=== PATIENT | male | born 1985 | race Caucasian/White ===

== ENCOUNTER 2017-12-05 10:31 | Emergency (ER) | payer OTHER ==
[~2017-12-05] VITALS: Ht 188 cm; Wt 90.7 kg
[~2017-12-05 10:31] MED LIST: AMOCLA875 PO; Amoxicillin500 MG PO; CARV25 PO; CARV6.25 PO; CHLO25 PO; CLON.1 PO; CLON2 PO; CYCL10 PO; Cleocin HCl300 MG PO; Flonase 0.05% N16 GM; Hydrocodone-Ap1 EA23 PO; LISI20 PO; LORA2 PO; METO25ER PO; MIRT30 PO; Mobic15 MG PO; Norco 5-325 Ta1 EACH PO; PROM25 PO; Prednisone10 MG PO; Roxicodone5 MG PO; Ultram50 MG PO; Zestril40 MG; Zofran Odt4 MG SL
[2017-12-05] MEDS ORDERED: LATUDA40 MG PO (10:41)
[2017-12-05] MEDS ORDERED: OXYC10TA19 PO (10:41)
[2017-12-05] MEDS ORDERED: Catapres0.1 MG PO (11:19)
== END 2017-12-05 11:22 | disposition home or self-care (01) ==
LOC: ER 10:31
DX: Z76.0 Encounter for issue of repeat prescription (principal); I10 Essential (primary) hypertension; F32.9 Major depressive disorder, single episode, unspecified; Z88.5 Allergy status to narcotic agent; Z88.6 Allergy status to analgesic agent; Z79.899 Other long term (current) drug therapy; Z87.891 Personal history of nicotine dependence
CPT/HCPCS: 99281

== ENCOUNTER 2017-12-13 19:06 | Emergency (ER) | payer OTHER ==
[~2017-12-13] VITALS: Ht 188 cm; Wt 90.7 kg
[~2017-12-13 19:06] MED LIST changes: +Catapres0.1 MG PO; +LATUDA40 MG PO; +OXYC10TA19 PO
[2017-12-13] MEDS ORDERED: LAMICTAL5 M1 GT (19:25)
[2017-12-13] MEDS ORDERED: GABA300 PO (19:26)
[2017-12-13] MEDS ORDERED: MIRT30 PO (19:27)
[2017-12-13] MEDS ORDERED: Ativan1 MG SL (20:07)
== END 2017-12-13 20:57 | disposition home or self-care (01) ==
LOC: ER 19:06
DX: Z71.41 Alcohol abuse counseling and surveillance of alcoholic (principal); I10 Essential (primary) hypertension; F31.9 Bipolar disorder, unspecified; Z88.5 Allergy status to narcotic agent; Z88.6 Allergy status to analgesic agent; Z79.899 Other long term (current) drug therapy; Z87.891 Personal history of nicotine dependence
CPT/HCPCS: 99283

== ENCOUNTER 2017-12-17 09:12 | Emergency (ER) | payer OTHER ==
[~2017-12-17] VITALS: Ht 188 cm; Wt 90.7 kg
[~2017-12-17 09:12] MED LIST changes: +Ativan1 MG SL; +GABA300 PO; +LAMICTAL5 M1 GT
[2017-12-17] MEDS ORDERED: LORA2 PO (09:54)
[2017-12-18] MEDS ORDERED: LAMO25 PO (18:22)
== END 2017-12-17 10:21 | disposition home or self-care (01) ==
LOC: ER 09:12
DX: Z71.41 Alcohol abuse counseling and surveillance of alcoholic (principal); F10.239 Alcohol dependence with withdrawal, unspecified; Z88.5 Allergy status to narcotic agent; Z88.8 Allergy status to other drugs, medicaments and biological substances; Z79.899 Other long term (current) drug therapy; I10 Essential (primary) hypertension; F32.9 Major depressive disorder, single episode, unspecified; Z87.891 Personal history of nicotine dependence
CPT/HCPCS: 99283

== ENCOUNTER 2017-12-18 18:10 | Emergency (ER) | payer OTHER ==
[~2017-12-18] VITALS: Ht 188 cm; Wt 90.7 kg
[2017-12-18] MEDS ORDERED: LAMO25 PO (18:22)
[2017-12-18 18:48] LABS: BASOPHILS ABSOLUTE AUTO 0.03 K/mm3 (0.00-0.23); BASOPHILS PERCENT AUTO 0 % (0-2); EOSINOPHILS ABSOLUTE AUTO 0.22 K/mm3 (0.00-0.68); EOSINOPHILS PERCENT AUTO 3 % (0-6); Hematocrit 45.9 % (37.0-53.0); Hemoglobin 15.9 g/dL (13.5-17.5); IMMATURE GRAN ABSOLUTE AUTO 0.02 K/mm3 (0.00-0.10); IMMATURE GRAN PERCENT AUTO 0 % (0-1); LYMPHOCYTES ABSOLUTE AUTO 3.09 K/mm3 (0.84-5.20); LYMPHOCYTES PERCENT AUTO 46 % (21-46); MONOCYTES ABSOLUTE AUTO 0.55 K/mm3 (0.16-1.47); MONOCYTES PERCENT AUTO 8 % (4-13); Mean Corpuscular HGB 31.3 pg (26.0-34.0); Mean Corpuscular HGB Conc 34.6 g/dL (31.5-36.5); Mean Corpuscular Volume 90 fL (80-100); Mean Platelet Volume 8.9 fL (9.1-12.4); NEUTROPHILS ABSOLUTE AUTO 2.77 K/mm3 (1.96-9.15); NEUTROPHILS PERCENT AUTO 42 % (41-73); Platelet Count 295 K/mm3 (150-400); RDW Coefficient Variation 12.3 % (11.7-14.2); RDW Standard Deviation 40.4 fL (35.1-46.3); Red Blood Cell Count 5.08 M/mm3 (4.30-5.90); White Blood Cell Count 6.68 K/mm3 (4.00-11.30)
[2017-12-18 19:12] LABS: U Amphetamine Screen Not Detected; U Barbituate Screen Not Detected; U Benzodiazapine Screen DETECTED; U Cocaine Screen Not Detected; U Methadone Screen Not Detected; U Methamphetamine Screen Not Detected; U Opiates Screen Not Detected
[2017-12-18 19:13] LABS: U Buprenorphine Screen Not Detected; U Cannabinoids Screen Not Detected; U Oxycodone Screen Not Detected; U Phencyclidine Screen Not Detected; U Propoxyphene Screen Not Detected
[2017-12-18 19:18] LABS: Alanine Aminotransfer (ALT/SGP 33 U/L (12-78); Albumin, Blood 4.4 g/dL (3.4-5.0); Albumin/Globulin Ratio 1.1 (0.8-1.8); Alk Phos 70 U/L (50-136); Anion Gap 7 mmol/L (6-16); Aspartate Aminotrans (AST/SGOT 20 U/L (12-37); Bilirubin, Total 0.4 mg/dL (0.1-1.0); Blood Urea Nitrogen 10 mg/dL (8-24); Bun/Creatinine Ratio 8.5 (12.0-20.0); CO2, Blood 30 mmol/L (21-32); Chloride, Blood 106 mmol/L (98-108); Creatinine, Blood 1.18 mg/dL (0.60-1.20); Ethanol (Alcohol), Blood, Med 229 mg/dL; Glomerular Filtration Rate >60 (60-); Glucose, Blood 82 mg/dL (70-99); Potassium, Blood 4.1 mmol/L (3.5-5.5); Salicylate <1.7 mg/dL (2.8-20.0); Sodium, Blood 143 mmol/L (136-145); Total Protein, Blood 8.4 g/dL (6.4-8.2)
[2017-12-18 19:20] LABS: Acetaminophen, Random <2.0 ug/mL (10.0-30.0)
== END 2017-12-18 18:44 | disposition home or self-care (01) ==
LOC: ER 18:10
PROVIDERS: Emergency Medicine
DX: T42.4X1A Poisoning by benzodiazepines, accidental (unintentional), initial encounter (principal); T39.311A Poisoning by propionic acid derivatives, accidental (unintentional), initial encounter; F31.9 Bipolar disorder, unspecified; F41.9 Anxiety disorder, unspecified; Z79.899 Other long term (current) drug therapy
CPT/HCPCS: 80053; 85025; 99283; G0480

== ENCOUNTER 2018-01-10 08:55 | Emergency (ER) | payer OTHER ==
[~2018-01-10] VITALS: Ht 188 cm; Wt 90.7 kg
[~2018-01-10 08:55] MED LIST changes: +LAMO25 PO
[2018-01-10] MEDS ORDERED: LAMO100 PO (09:06)
[2018-01-10] MEDS ORDERED: LATUDA20 MG PO (09:07)
[2018-01-10] MEDS ORDERED: BUSP15 PO (09:07)
[2018-01-10] MEDS ORDERED: LORA1 PO (09:07)
== END 2018-01-10 09:25 | disposition home or self-care (01) ==
LOC: ER 08:55
DX: Z76.0 Encounter for issue of repeat prescription (principal); I10 Essential (primary) hypertension; F32.9 Major depressive disorder, single episode, unspecified; F17.220 Nicotine dependence, chewing tobacco, uncomplicated; Z79.899 Other long term (current) drug therapy
CPT/HCPCS: 99281

== ENCOUNTER 2018-01-12 11:09 | Emergency (ER) | payer OTHER ==
[~2018-01-12] VITALS: Ht 188 cm; Wt 90.7 kg
[~2018-01-12 11:09] MED LIST changes: +BUSP15 PO; +LAMO100 PO; +LATUDA20 MG PO; +LORA1 PO
[2018-01-12 11:49] LABS: BASOPHILS ABSOLUTE AUTO 0.07 K/mm3 (0.00-0.23); BASOPHILS PERCENT AUTO 1 % (0-2); EOSINOPHILS ABSOLUTE AUTO 0.14 K/mm3 (0.00-0.68); EOSINOPHILS PERCENT AUTO 3 % (0-6); Hematocrit 46.5 % (37.0-53.0); IMMATURE GRAN ABSOLUTE AUTO 0.01 K/mm3 (0.00-0.10); IMMATURE GRAN PERCENT AUTO 0 % (0-1); LYMPHOCYTES ABSOLUTE AUTO 1.61 K/mm3 (0.84-5.20); LYMPHOCYTES PERCENT AUTO 30 % (21-46); MONOCYTES ABSOLUTE AUTO 0.37 K/mm3 (0.16-1.47); MONOCYTES PERCENT AUTO 7 % (4-13); Mean Corpuscular HGB 31.2 pg (26.0-34.0); Mean Corpuscular HGB Conc 34.4 g/dL (31.5-36.5); Mean Corpuscular Volume 91 fL (80-100); NEUTROPHILS PERCENT AUTO 59 % (41-73); RDW Coefficient Variation 12.4 % (11.7-14.2); RDW Standard Deviation 40.9 fL (35.1-46.3); Red Blood Cell Count 5.13 M/mm3 (4.30-5.90)
[2018-01-12 11:54] LABS: Anion Gap 13 mmol/L (6-16); Blood Urea Nitrogen 11 mg/dL (8-24); Bun/Creatinine Ratio 10.8 (12.0-20.0); CO2, Blood 23 mmol/L (21-32); Calcium, Blood 8.8 mg/dL (8.5-10.1); Chloride, Blood 104 mmol/L (98-108); Creatinine, Blood 1.02 mg/dL (0.60-1.20); Glomerular Filtration Rate >60 (60-); Glucose, Blood 85 mg/dL (70-99); Potassium, Blood 4.3 mmol/L (3.5-5.5); Sodium, Blood 140 mmol/L (136-145)
[2018-01-12 12:22] LABS: Mean Platelet Volume 9.3 fL (9.1-12.4); Platelet Count 197 K/mm3 (150-400)
== END 2018-01-12 14:03 | disposition home or self-care (01) ==
LOC: ER 11:09
PROVIDERS: Emergency Medicine
DX: R56.9 Unspecified convulsions (principal); I10 Essential (primary) hypertension; F32.9 Major depressive disorder, single episode, unspecified; Z87.891 Personal history of nicotine dependence; Z79.899 Other long term (current) drug therapy
CPT/HCPCS: 80048; 85025; 96360; 96361; 99283; J7030

== ENCOUNTER 2018-01-23 23:35 | Emergency (ER) | payer OTHER ==
[2018-01-24] MEDS ORDERED: CHLO25 PO (03:21)
== END 2018-01-24 01:30 | disposition left against medical advice (07) ==
LOC: ER 23:35
DX: Z53.21 Procedure and treatment not carried out due to patient leaving prior to being seen by health care provider (principal)

== ENCOUNTER 2018-01-24 01:51 | Emergency (ER) | payer OTHER ==
[~2018-01-24] VITALS: Ht 188 cm; Wt 90.7 kg
[2018-01-24] MEDS ORDERED: CHLO25 PO (03:21)
== END 2018-01-24 03:50 | disposition home or self-care (01) ==
LOC: ER 01:51
DX: F10.239 Alcohol dependence with withdrawal, unspecified (principal); I10 Essential (primary) hypertension; F32.9 Major depressive disorder, single episode, unspecified; Z79.899 Other long term (current) drug therapy; Z87.891 Personal history of nicotine dependence
CPT/HCPCS: 96361; 96374; 99283; J2060; J7030